=== PATIENT | male | born 1980 | race Two or more races ===

== ENCOUNTER 2019-11-09 10:36 | Outpatient (CLI) | payer OTHER, SELFPAY ==
--- NOTE | ~2019-11-09 | XR_ITS ---
XR chest 2V DATE: 11/09/2019 11:03 INDICATION: Screening for respiratory tuberculosis TECHNIQUE: PA and lateral views COMPARISON: None FINDINGS: Normal heart size. No hilar or mediastinal enlargement. No pulmonary infiltrate or consolid ation, pleural effusion or pulmonary vascular congestion or pneumothorax. There is mild dextro scoliosis of the thoracic spine. IMPRESSION: No active cardiopulmonary disease Reviewed, dictated and finalized at location A.
== END 2019-11-09 10:37 | disposition home or self-care (01) ==
PROVIDERS: PCP Nurse Practitioner; Visit Provider Nurse Practitioner
DX: Z11.1 Encounter for screening for respiratory tuberculosis (principal)
CPT/HCPCS: 71046